=== PATIENT | female | born 1940 | race Caucasian/White ===

== ENCOUNTER 2017-12-04 18:00 | Emergency (ER) | payer MEDICARE ==
[~2017-12-04] VITALS: Ht 167.6 cm; Wt 86.2 kg
[~2017-12-04 18:00] MED LIST: ALBU90OI INH; AMLO5 PO; ASPI81CH PO; ASPI81EC PO; B/P MED; CEPH500 PO; CHOL10002; CHOL10002 PO; CLON.1 PO; CLOP75 PO; CVS GLUCOSAMIN1 EAC5 PO; Calcium Magnes1 EAC1 PO; Cyclobenzaprine5 MG PO; GABA300 PO; HYDACE10B PO; HYDR1TAB94 PO; LISI20 PO; LISI5 PO; LIVALO1 MG PO; MELO7.5 PO; METANEX PO; METO25 PO; METO25ER PO; MIRAPEX ER1.5 MG PO; NITR.6SL SL; OMEGA-3 PO; PRAM.125 PO; PRAM.5 PO; PRAV10 PO; PRED20 PO; ROSU5 PO; SPACE CHAMBER1 EACH MC; TERB250 PO; TRAM50 PO; UBID100 PO; VITAMIN B PO; VITNEPH PO; XARELTO10 MG PO; [UNRECOGNIZED DRUG - OTHER]; [UNRECOGNIZED DRUG - OTHER] PO
[2017-12-04 18:42] LABS: BASOPHILS ABSOLUTE AUTO 0.02 K/mm3 (0.00-0.23); BASOPHILS PERCENT AUTO 0 % (0-2); EOSINOPHILS ABSOLUTE AUTO 0.35 K/mm3 (0.00-0.68); EOSINOPHILS PERCENT AUTO 6 % (0-6); Hematocrit 36.8 % (33.0-51.0); Hemoglobin 11.9 g/dL (11.5-16.0); IMMATURE GRAN ABSOLUTE AUTO 0.01 K/mm3 (0.00-0.10); IMMATURE GRAN PERCENT AUTO 0 % (0-1); LYMPHOCYTES ABSOLUTE AUTO 1.35 K/mm3 (0.84-5.20); LYMPHOCYTES PERCENT AUTO 24 % (21-46); MONOCYTES ABSOLUTE AUTO 0.44 K/mm3 (0.16-1.47); MONOCYTES PERCENT AUTO 8 % (4-13); Mean Corpuscular HGB 30.1 pg (26.0-34.0); Mean Corpuscular HGB Conc 32.3 g/dL (31.5-36.5); Mean Corpuscular Volume 93 fL (80-100); NEUTROPHILS ABSOLUTE AUTO 3.48 K/mm3 (1.96-9.15); NEUTROPHILS PERCENT AUTO 62 % (41-73); Platelet Count 245 K/mm3 (150-400); RDW Coefficient Variation 13.7 % (11.7-14.2); RDW Standard Deviation 46.7 fL (35.1-46.3); Red Blood Cell Count 3.96 M/mm3 (3.80-5.20); White Blood Cell Count 5.65 K/mm3 (4.00-11.30)
[2017-12-04 19:02] LABS: Alanine Aminotransfer (ALT/SGP 27 U/L (12-78); Albumin, Blood 3.4 g/dL (3.4-5.0); Albumin/Globulin Ratio 0.8 (0.8-1.8); Alk Phos 74 U/L (50-136); Anion Gap 6 mmol/L (6-16); Aspartate Aminotrans (AST/SGOT 29 U/L (12-37); Bilirubin, Total 0.2 mg/dL (0.1-1.0); Blood Urea Nitrogen 26 mg/dL (8-24); Bun/Creatinine Ratio 29.5 (12.0-20.0); CO2, Blood 28 mmol/L (21-32); Calcium, Blood 8.7 mg/dL (8.5-10.1); Chloride, Blood 104 mmol/L (98-108); Creatinine, Blood 0.88 mg/dL (0.40-1.00); Globulin, Blood 4.4 g/dL (2.2-4.0); Glomerular Filtration Rate >60 (60-); Glucose, Blood 113 mg/dL (70-99); Potassium, Blood 4.5 mmol/L (3.5-5.5); Sodium, Blood 138 mmol/L (136-145); Total Protein, Blood 7.8 g/dL (6.4-8.2); Troponin I <0.015 ng/mL (0.000-0.040)
[2017-12-04] MEDS ORDERED: XARELTO10 MG (21:53)
[2017-12-04] MEDS ORDERED: MECL12.5 PO (23:36)
== END 2017-12-04 23:42 | disposition home or self-care (01) ==
LOC: ER 18:00
PROVIDERS: Emergency Medicine
DX: R42 Dizziness and giddiness (principal); I10 Essential (primary) hypertension; K21.9 Gastro-esophageal reflux disease without esophagitis; Z88.6 Allergy status to analgesic agent; Z88.1 Allergy status to other antibiotic agents; Z88.5 Allergy status to narcotic agent; Z79.899 Other long term (current) drug therapy
CPT/HCPCS: 36415; 71046; 80053; 83880; 84484; 85025; 93005; 93010; 96361; 96374; 99284-25; J2405; J7120

== ENCOUNTER 2018-09-29 16:59 | Emergency (ER) | payer MEDICARE ==
[~2018-09-29] VITALS: Ht 167.6 cm; Wt 90.7 kg
[~2018-09-29 16:59] MED LIST changes: +MECL12.5 PO; +NAPR550 PO; +XARELTO10 MG
[2018-09-29 19:37] LABS: BASOPHILS ABSOLUTE AUTO 0.01 K/mm3 (0.00-0.23); BASOPHILS PERCENT AUTO 0 % (0-2); EOSINOPHILS ABSOLUTE AUTO 0.16 K/mm3 (0.00-0.68); EOSINOPHILS PERCENT AUTO 3 % (0-6); Hematocrit 40.4 % (33.0-51.0); Hemoglobin 12.8 g/dL (11.5-16.0); IMMATURE GRAN ABSOLUTE AUTO 0.01 K/mm3 (0.00-0.10); IMMATURE GRAN PERCENT AUTO 0 % (0-1); LYMPHOCYTES ABSOLUTE AUTO 0.63 K/mm3 (0.84-5.20); LYMPHOCYTES PERCENT AUTO 11 % (21-46); MONOCYTES ABSOLUTE AUTO 0.39 K/mm3 (0.16-1.47); MONOCYTES PERCENT AUTO 7 % (4-13); Mean Corpuscular HGB 30.7 pg (26.0-34.0); Mean Corpuscular HGB Conc 31.7 g/dL (31.5-36.5); Mean Corpuscular Volume 97 fL (80-100); Mean Platelet Volume 8.8 fL (9.1-12.4); NEUTROPHILS ABSOLUTE AUTO 4.82 K/mm3 (1.96-9.15); NEUTROPHILS PERCENT AUTO 80 % (41-73); Platelet Count 197 K/mm3 (150-400); RDW Coefficient Variation 13.9 % (11.7-14.2); RDW Standard Deviation 49.5 fL (35.1-46.3); Red Blood Cell Count 4.17 M/mm3 (3.80-5.20); White Blood Cell Count 6.02 K/mm3 (4.00-11.30)
[2018-09-29] MEDS ORDERED: AZIT500 PO (20:00)
== END 2018-09-29 20:13 | disposition home or self-care (01) ==
LOC: ER 16:59
PROVIDERS: Emergency Medicine
DX: J40 Bronchitis, not specified as acute or chronic (principal); I10 Essential (primary) hypertension; K21.9 Gastro-esophageal reflux disease without esophagitis
CPT/HCPCS: 36415; 71046; 85025; 99284-25

== ENCOUNTER → 2018-11-21 | Outpatient (CLI) | payer MEDICARE ==
[~2018-11-21] MED LIST changes: +AZIT500 PO
[2018-11-21 10:51] LABS: Source, Urine Clean Catch
[2018-11-21 13:53] LABS: Bilirubin, Urine Neg (Neg); Blood, Urine 1+ (Neg); Glucose Qualitative, Urine Neg (Neg); Ketones, Urine Neg (Neg); Leukocyte Esterase, Urine Neg (Neg); Nitrite, Urine Neg (Neg); Protein, Urine Neg (Neg); Urobilinogen, Urine NORM (Normal); pH, Urine 6.5 (5.0-8.0)
[2018-11-21 14:47] LABS: Appearance, Urine Clear (Clear); Color, Urine Yellow (P-Yellow)
[2018-11-21 14:51] LABS: Bacteria Rare /hpf; Red Blood Cells, Urine 0-2 /hpf (0-2); Squamous Epithelial Cells Rare /hpf (Few); White Blood Cells, Urine 0-2 /hpf (0-5)
== END | disposition home or self-care (01) ==
LOC: LAB 10:45 → LAB SHORT 10:45
PROVIDERS: Internal Medicine
DX: R31.29 Other microscopic hematuria (principal)
CPT/HCPCS: 81001; 88108

== ENCOUNTER → 2021-12-25 | Outpatient (CLI) | payer MEDICARE ==
[~2021-12-25] MED LIST changes: +CYMBALTA30 M2 PO; +Mirapex1.5 MG PO; +NEURONTIN300 MG PO
== END | disposition home or self-care (01) ==
LOC: LAB SHORT 18:59
DX: N39.0 Urinary tract infection, site not specified (principal)
CPT/HCPCS: 87077; 87086; 87186

== ENCOUNTER 2021-12-27 14:18 | Inpatient (IN) | payer MEDICARE ==
[~2021-12-27] VITALS: Ht 165.1 cm; Wt 89.8 kg
[~2021-12-27 14:18] MED LIST changes: +CALCIUM MAGNES1 EACH PO; -CHOL10002; -CYMBALTA30 M2 PO; -Calcium Magnes1 EAC1 PO; -Mirapex1.5 MG PO; -NEURONTIN300 MG PO; +VITAMIN D31000 UNI1 PO
[2021-12-27 20:28] LABS: Influenza A, PCR NEGATIVE (NEGATIVE); Influenza B, PCR NEGATIVE (NEGATIVE); Resp Syncytial Virus, PCR NEGATIVE (NEGATIVE); SARS-Cov-2 (COVID-19) PCR, MMC NEGATIVE (NEGATIVE)
[2021-12-27 20:29] LABS: Calcium, Blood 9.4 mg/dL (8.5-10.1); Creatinine, Blood 0.9 mg/dL (0.40-1.00)
[2021-12-27 21:19] LABS: Bun/Creatinine Ratio 21.3 (12.0-20.0); Calcium, Blood 7.9 mg/dL (8.5-10.1); Creatinine, Blood 0.84 mg/dL (0.40-1.00); Potassium, Blood 3.6 mmol/L (3.5-5.5)
--- NOTE | 2021-12-27 23:50 | NUR ---
ADMIT NOTE 81 YR OLD FEMALE ADMITTED TO FLOOR FROM THE ED WITH DX OF HYPONATREMIA. ED RN VOICED PT STATED THAT SHE WAS SENT HERE WITH ALLEGED PNEUMONIA AND FOR ANTIBIOTIC THERAPY. BUT AFTER ASSESSMENTS IT WAS CHANGED TO HYPONATREMIA. ALERT BUT FORGETFUL. ED RN REPORTED RECENT FALLS. PLACED ON BED ALARM AND RAILS UP X 3. EDUCATED RE CALL LIGHT USE AND AGREES TO USE IT IF NEEDS TO GET OUT OF BED. CALL LIGHT IN REACH
[2021-12-28 03:05] LABS: BASOPHILS ABSOLUTE AUTO 0.03 K/mm3 (0.00-0.23); BASOPHILS PERCENT AUTO 0 % (0-2); EOSINOPHILS ABSOLUTE AUTO 0.07 K/mm3 (0.00-0.68); EOSINOPHILS PERCENT AUTO 1 % (0-6); Hemoglobin 10.6 g/dL (11.5-16.0); IMMATURE GRAN ABSOLUTE AUTO 0.04 K/mm3 (0.00-0.10); IMMATURE GRAN PERCENT AUTO 1 % (0-1); LYMPHOCYTES ABSOLUTE AUTO 0.78 K/mm3 (0.84-5.20); LYMPHOCYTES PERCENT AUTO 9 % (21-46); MONOCYTES ABSOLUTE AUTO 0.47 K/mm3 (0.16-1.47); MONOCYTES PERCENT AUTO 5 % (4-13); Mean Corpuscular HGB 31.2 pg (26.0-34.0); Mean Corpuscular HGB Conc 34.2 g/dL (31.5-36.5); Mean Corpuscular Volume 91 fL (80-100); Mean Platelet Volume 8.8 fL (9.1-12.4); NEUTROPHILS ABSOLUTE AUTO 7.24 K/mm3 (1.96-9.15); NEUTROPHILS PERCENT AUTO 84 % (41-73); Platelet Count 211 K/mm3 (150-400); RDW Coefficient Variation 13.8 % (11.7-14.2); RDW Standard Deviation 46.7 fL (35.1-46.3); White Blood Cell Count 8.63 K/mm3 (4.00-11.30)
[2021-12-28 03:22] LABS: Albumin, Blood 2.3 g/dL (3.4-5.0); Albumin/Globulin Ratio 0.5 (0.8-1.8); Bilirubin, Total 0.3 mg/dL (0.1-1.0); Calcium, Blood 8.4 mg/dL (8.5-10.1); Creatinine, Blood 0.81 mg/dL (0.40-1.00); Globulin, Blood 4.4 g/dL (2.2-4.0); Potassium, Blood 3.7 mmol/L (3.5-5.5); Total Protein, Blood 6.7 g/dL (6.4-8.2)
--- NOTE | 2021-12-28 03:27 | NUR ---
EPIC INTERFACE ANALYST SUMMARY ADMITTED EARLIER IN THE SHIFT WITH HYPONATREMIA, AND FALLS AT HOME. ALSO, PER ED RN RESPIRATORY ISSUES - PNEUMONIA. IV ANTIBIOTICS ADMINISTERED SEE JUN. ORIENTED TO USE OF CALL LIGHT. INSTRUCTED TO USE CALL LIGHT IF NEEDS TO GET OUT OF BED. HAS BEEN RESTING QUIETLY WITH FEW INTERRUPTIONS SINCE. DMITRY LIGHT IN REACH. VSS
[2021-12-28 05:28] LABS: Source, Urine Clean Catch
[2021-12-28 05:33] LABS: Bilirubin, Urine Neg (Neg); Blood, Urine 4+ (Neg); Glucose Qualitative, Urine Neg (Neg); Ketones, Urine 1+ (Neg); Leukocyte Esterase, Urine 1+ (Neg); Nitrite, Urine Neg (Neg); Protein, Urine 2+ (Neg); Specific Gravity, Urine 1.015 (1.003-1.022); Urobilinogen, Urine NORM (Normal)
[2021-12-28 06:15] LABS: Appearance, Urine Clear (Clear); Color, Urine Yellow (P-Yellow)
[2021-12-28 06:18] LABS: Bacteria Few /hpf; Squamous Epithelial Cells Few /hpf (Few); Transitional Epithelial Cells Rare /hpf (0-Rare)
[2021-12-28 09:43] LABS: Bun/Creatinine Ratio 19.6 (12.0-20.0); Calcium, Blood 8.4 mg/dL (8.5-10.1); Creatinine, Blood 0.92 mg/dL (0.40-1.00); Potassium, Blood 3.7 mmol/L (3.5-5.5)
[2021-12-28] MEDS ORDERED: NEURONTIN300 MG PO ×2 (11:50→11:51)
[2021-12-28] MEDS ORDERED: CYMBALTA30 M2 PO (11:50)
[2021-12-28] MEDS ORDERED: Mirapex1.5 MG PO (11:51)
[2021-12-28 15:06] LABS: Bun/Creatinine Ratio 20.6 (12.0-20.0); Calcium, Blood 9.2 mg/dL (8.5-10.1); Creatinine, Blood 0.88 mg/dL (0.40-1.00); Potassium, Blood 4.1 mmol/L (3.5-5.5)
--- NOTE | 2021-12-28 18:11 | NUR ---
SHIFT SUMMARY A&O X3-4 AND PLEASANT. PT COMPLAINED OF HEADACHE AND CHEST PAIN WHEN SHE COUGHED. MEDICATED X1 PER EMAR. VSS. NO C/O OF NUMBNESS OR TINGLING. SMALL SCABS ON BILATEREAL ELBOWS THAT BOTHERED PT WHEN MOVING. GUAZE AND CAST NETTING PLACED. PT UP IN CHAIR FOR DINNER. CALL LIGHT IN REACH.
--- NOTE | 2021-12-28 21:36 | NUR ---
STATED SHE FELT "BETTER" THAN WHEN FIRST ADMITTED BUT STILL WEAK. DISCUSSED ANTIBIOTICS WITH NURSE. CALL LIGHT IN REACH
--- NOTE | 2021-12-29 03:40 | NUR ---
HOCKEY PLAYER SUMMARY O2 AT 2.5L/MIN PER NC. LUNG SOUNDS REMAIN DIMINISHED BUT PT VOICED FEELING BETTER THAN 24 HR AGO. HAS BEEN RESTING QUIETLY WITH FEW INTERRUPTIONS, ONE TIME SEEMED TO HAVE SARMAD DREAM - CALLING OUT AND MUMBLING. WHEN NURSE CAME TO CHECK HER, SHE SEEMED STARTLED SHE WOKE UP AND SYMPTOMS WENT AWAY. CONTINUES TO RECEIVE ANTIBIOTICS. CALL LIGHT IN REACH. UP WITH ASSIST TO BATHROOM NEEDED. WILL CONTINUE TO MONITOR
[2021-12-29 05:00] LABS: BASOPHILS ABSOLUTE AUTO 0.02 K/mm3 (0.00-0.23); BASOPHILS PERCENT AUTO 0 % (0-2); EOSINOPHILS ABSOLUTE AUTO 0.35 K/mm3 (0.00-0.68); EOSINOPHILS PERCENT AUTO 4 % (0-6); Hemoglobin 10.7 g/dL (11.5-16.0); IMMATURE GRAN ABSOLUTE AUTO 0.05 K/mm3 (0.00-0.10); IMMATURE GRAN PERCENT AUTO 1 % (0-1); LYMPHOCYTES ABSOLUTE AUTO 0.57 K/mm3 (0.84-5.20); LYMPHOCYTES PERCENT AUTO 7 % (21-46); MONOCYTES ABSOLUTE AUTO 0.57 K/mm3 (0.16-1.47); MONOCYTES PERCENT AUTO 7 % (4-13); Mean Corpuscular HGB 30.8 pg (26.0-34.0); Mean Corpuscular HGB Conc 33.4 g/dL (31.5-36.5); Mean Corpuscular Volume 92 fL (80-100); Mean Platelet Volume 8.7 fL (9.1-12.4); NEUTROPHILS ABSOLUTE AUTO 6.52 K/mm3 (1.96-9.15); NEUTROPHILS PERCENT AUTO 81 % (41-73); Platelet Count 220 K/mm3 (150-400); RDW Coefficient Variation 13.7 % (11.7-14.2); RDW Standard Deviation 46.8 fL (35.1-46.3); Red Blood Cell Count 3.47 M/mm3 (3.80-5.20); White Blood Cell Count 8.08 K/mm3 (4.00-11.30)
[2021-12-29 05:35] LABS: Albumin, Blood 2.2 g/dL (3.4-5.0); Anion Gap 6 mmol/L (6-16); Blood Urea Nitrogen 16 mg/dL (8-24); Bun/Creatinine Ratio 23.4 (12.0-20.0); CO2, Blood 28 mmol/L (21-32); Calcium, Blood 8.9 mg/dL (8.5-10.1); Chloride, Blood 95 mmol/L (98-108); Creatinine, Blood 0.68 mg/dL (0.40-1.00); Glomerular Filtration Rate 87 (60-); Glucose, Blood 91 mg/dL (70-99); Magnesium, Blood 2.2 mg/dL (1.6-2.4); Phosphorus, Blood 3.5 mg/dL (2.5-4.9); Potassium, Blood 4.1 mmol/L (3.5-5.5); Sodium, Blood 129 mmol/L (136-145)
--- NOTE | 2021-12-30 04:00 | NUR ---
FIXED INTEREST DEALER SUMMARY RECEIVED ANALGESIC AT HS FOR SHEPHERD. FEW C/O VOICED OTHERWISE. IV ANTIBIOTICS ADMINISTERED- SEE MAR FOR DETAILS. HAS BEEN RESTING QUIETLY WITH FEW INTERRUPTIONS. UP TO BATHROOM WITH ASSIST A FEW TIMES. VOICED FEELING BETTER BUT STILL FATIGUED. CALL LIGHT IN REACH. VSS
[2021-12-30 05:56] LABS: BASOPHILS ABSOLUTE AUTO 0.02 K/mm3 (0.00-0.23); BASOPHILS PERCENT AUTO 0 % (0-2); EOSINOPHILS ABSOLUTE AUTO 0.35 K/mm3 (0.00-0.68); EOSINOPHILS PERCENT AUTO 6 % (0-6); Hematocrit 32.5 % (33.0-51.0); Hemoglobin 10.8 g/dL (11.5-16.0); IMMATURE GRAN ABSOLUTE AUTO 0.07 K/mm3 (0.00-0.10); IMMATURE GRAN PERCENT AUTO 1 % (0-1); LYMPHOCYTES ABSOLUTE AUTO 0.83 K/mm3 (0.84-5.20); LYMPHOCYTES PERCENT AUTO 13 % (21-46); MONOCYTES ABSOLUTE AUTO 0.49 K/mm3 (0.16-1.47); MONOCYTES PERCENT AUTO 8 % (4-13); Mean Corpuscular HGB 30.9 pg (26.0-34.0); Mean Corpuscular HGB Conc 33.2 g/dL (31.5-36.5); Mean Corpuscular Volume 93 fL (80-100); Mean Platelet Volume 8.7 fL (9.1-12.4); NEUTROPHILS ABSOLUTE AUTO 4.52 K/mm3 (1.96-9.15); NEUTROPHILS PERCENT AUTO 72 % (41-73); Platelet Count 283 K/mm3 (150-400); RDW Coefficient Variation 13.6 % (11.7-14.2); RDW Standard Deviation 46.5 fL (35.1-46.3); White Blood Cell Count 6.28 K/mm3 (4.00-11.30)
[2021-12-30 06:21] LABS: Albumin, Blood 2.4 g/dL (3.4-5.0); Anion Gap 8 mmol/L (6-16); Blood Urea Nitrogen 17 mg/dL (8-24); CO2, Blood 29 mmol/L (21-32); Chloride, Blood 95 mmol/L (98-108); Creatinine, Blood 0.77 mg/dL (0.40-1.00); Glomerular Filtration Rate 77 (60-); Glucose, Blood 96 mg/dL (70-99); Magnesium, Blood 2.2 mg/dL (1.6-2.4); Potassium, Blood 4.1 mmol/L (3.5-5.5); Sodium, Blood 132 mmol/L (136-145)
--- NOTE | 2021-12-30 16:39 | NUR ---
NO ACUTE CHANGES AT THIS TIME. AO AND DOING WELL WITH GAITBELT AND WALKER TO RESTROOM. NO DISTRESS AT THIS TIME CALL LIGHT WITHIN REACH WILL CONTINUE TO MONITOR.
--- NOTE | 2021-12-30 23:11 | NUR ---
PT UP IN HALLWAY, VOICING CONCERN RE "SEEING THINGS", WENT ON TO SPECIFY, "LIGHT FOLLOWING MY ARM....HEARING SOMEONE BEHIND ME...SEEING LINEN IN FRONT OF ME..". BP ELEVATED. WILL RECHECK LATER - SEE DOC FLOW SHEETS. RECEIVED NEW MEDS TONIGHT: LYRICA AND REQUIP. NOTIFIED. ORDERS TO HOLD REQUIP UNIL FURTHER NOTICE. CALL LIGHT IN REACH.
--- NOTE | 2021-12-30 23:42 | NUR ---
requip discontinued. Pt sitting up in chair at bedside. Will continue to monitor. Call light in reach
--- NOTE | 2021-12-31 03:13 | NUR ---
AWAKE. SITTING ON BAD. VOICED "FEELING BETTER". CALL LIGHT IN REACH
--- NOTE | 2021-12-31 04:44 | NUR ---
A&Ox4. DBP DROPPED A LITTLE LOW THIS EVENING. STARTED REQUIP AND LYRICA THIS EVENING. C/O "SEEING CHASERS" AND SOME HALLUCINATIONS. PER DR PEDRAZA, DC REQUIP. AMBULATES SBA W/ WALKER. C/O RT LEG "JUMPING" R/T RLS AND NEUROPATHY. SLEPT T/O MOST OF NIGHT. WILL REPORT TO ONCOMING RN.
[2021-12-31 05:31] LABS: BASOPHILS ABSOLUTE AUTO 0.03 K/mm3 (0.00-0.23); BASOPHILS PERCENT AUTO 1 % (0-2); EOSINOPHILS ABSOLUTE AUTO 0.28 K/mm3 (0.00-0.68); EOSINOPHILS PERCENT AUTO 5 % (0-6); Hemoglobin 10.9 g/dL (11.5-16.0); IMMATURE GRAN ABSOLUTE AUTO 0.09 K/mm3 (0.00-0.10); IMMATURE GRAN PERCENT AUTO 2 % (0-1); LYMPHOCYTES ABSOLUTE AUTO 1.05 K/mm3 (0.84-5.20); LYMPHOCYTES PERCENT AUTO 19 % (21-46); MONOCYTES ABSOLUTE AUTO 0.54 K/mm3 (0.16-1.47); MONOCYTES PERCENT AUTO 10 % (4-13); Mean Corpuscular HGB 30.7 pg (26.0-34.0); Mean Corpuscular Volume 93 fL (80-100); Mean Platelet Volume 8.5 fL (9.1-12.4); NEUTROPHILS PERCENT AUTO 64 % (41-73); Platelet Count 328 K/mm3 (150-400); RDW Coefficient Variation 13.5 % (11.7-14.2); RDW Standard Deviation 46.5 fL (35.1-46.3); Red Blood Cell Count 3.55 M/mm3 (3.80-5.20); White Blood Cell Count 5.59 K/mm3 (4.00-11.30)
[2021-12-31 06:04] LABS: Albumin, Blood 2.7 g/dL (3.4-5.0); Anion Gap 10 mmol/L (6-16); Blood Urea Nitrogen 17 mg/dL (8-24); Bun/Creatinine Ratio 21.9 (12.0-20.0); CO2, Blood 27 mmol/L (21-32); Calcium, Blood 9.6 mg/dL (8.5-10.1); Chloride, Blood 97 mmol/L (98-108); Creatinine, Blood 0.78 mg/dL (0.40-1.00); Glomerular Filtration Rate 76 (60-); Glucose, Blood 97 mg/dL (70-99); Phosphorus, Blood 4.4 mg/dL (2.5-4.9); Sodium, Blood 134 mmol/L (136-145)
--- NOTE | 2021-12-31 16:38 | NUR ---
SHIFT SUMMARY: PATIENT A&OX4. PLEASANT AND COOPERATIVE WITH CARE. LUNGS HEARD CRACKLES ON THE BASES. CONTINENT OF BOWELS/BLADDER. UP WITH SBA & FWW TO BATHROOM. PT/OT WAS WORKING WITH PATIENT THIS AM. VITALS SIGNS REVIEWED. PATIENT CONTINUE TO REPORTS HAVING RESTLESS LEG SYNDROME. RECIEVED LIDOCAINE CREAM PER EMAR. PATIENT REPORTS OF HAVING MINIMAL EFFECT. NO ACUTE CHANGES THIS SHIFT. BED IN LOWEST POSITION, LOCKED AND CALL LIGHT WITHIN REACH.
--- NOTE | 2021-12-31 17:49 | NUR ---
THIS DRY TRANSFER WORKER HAS REVIEWED ALL ASSESSMENTS AND NOTES BY JOHANNY HERRERA AND AGREES WITH THEM.
--- NOTE | 2021-12-31 18:40 | NUR ---
PT HAS IS STATING SHE HAS ACID REFLUX PT SAID THIS CAUSED HER EMESIS AFTER DINNER. DR SWANN WAS NOTIFIED AND ADDED MEDICATION TO EMAR.
[2022-01-01 05:19] LABS: BASOPHILS ABSOLUTE AUTO 0.04 K/mm3 (0.00-0.23); BASOPHILS PERCENT AUTO 1 % (0-2); EOSINOPHILS ABSOLUTE AUTO 0.26 K/mm3 (0.00-0.68); EOSINOPHILS PERCENT AUTO 3 % (0-6); Hemoglobin 11.3 g/dL (11.5-16.0); IMMATURE GRAN ABSOLUTE AUTO 0.12 K/mm3 (0.00-0.10); IMMATURE GRAN PERCENT AUTO 1 % (0-1); LYMPHOCYTES ABSOLUTE AUTO 1.03 K/mm3 (0.84-5.20); LYMPHOCYTES PERCENT AUTO 12 % (21-46); MONOCYTES ABSOLUTE AUTO 0.62 K/mm3 (0.16-1.47); MONOCYTES PERCENT AUTO 7 % (4-13); Mean Corpuscular HGB 31.2 pg (26.0-34.0); Mean Corpuscular HGB Conc 33.2 g/dL (31.5-36.5); Mean Corpuscular Volume 94 fL (80-100); Mean Platelet Volume 8.2 fL (9.1-12.4); NEUTROPHILS ABSOLUTE AUTO 6.63 K/mm3 (1.96-9.15); NEUTROPHILS PERCENT AUTO 76 % (41-73); Platelet Count 362 K/mm3 (150-400); RDW Coefficient Variation 13.6 % (11.7-14.2); RDW Standard Deviation 47.3 fL (35.1-46.3); Red Blood Cell Count 3.62 M/mm3 (3.80-5.20)
[2022-01-01 05:43] LABS: Albumin, Blood 2.6 g/dL (3.4-5.0); Anion Gap 4 mmol/L (6-16); Blood Urea Nitrogen 17 mg/dL (8-24); Bun/Creatinine Ratio 19.2 (12.0-20.0); CO2, Blood 32 mmol/L (21-32); Calcium, Blood 9.7 mg/dL (8.5-10.1); Chloride, Blood 99 mmol/L (98-108); Creatinine, Blood 0.89 mg/dL (0.40-1.00); Glomerular Filtration Rate 65 (60-); Glucose, Blood 98 mg/dL (70-99); Magnesium, Blood 2.2 mg/dL (1.6-2.4); Potassium, Blood 4.6 mmol/L (3.5-5.5); Sodium, Blood 135 mmol/L (136-145)
--- NOTE | 2022-01-01 06:14 | NUR ---
SHRIMP PACKER SUMMARY PT A/OX4; NO ACUTE CHANGES. PT RESTED COMFORTABLY T/O THE NIGHT. PT STATES SHE LIVES ALONE. HER SON LIVES ON PROPERTY BUT RECENTLY INJURED IN MVA. PT IS INTERESTED IN GETTING A LIFE ALERT SERVICE WHEN SHE RETURNS HOME. LEFT VM W/CASE MANAGEMENT ABOUT INTEREST IN LIFE ALERT. WILL PASS CONCERN ON TO DAY SHIFT NURSE. CALL LIGHT IN REACH.
[2022-01-01] MEDS ORDERED: Norco 5-325 Ta1 EACH PO (12:51)
[2022-01-01] MEDS ORDERED: LYRICA100 M1 PO (12:52)
[2022-01-01] MEDS ORDERED: XARELTO20 MG PO (12:54)
[2022-01-01] MEDS ORDERED: AMOCLA875 PO (13:28)
[2022-01-01] MEDS ORDERED: OMEP20ER PO (13:31)
[2022-01-01] MEDS ORDERED: LIDO5TO TOP (13:31)
--- NOTE | 2022-01-01 16:06 | NUR ---
PATIENT A&OX4. PLEASANT AND COOPERATIVE WITH CARE. UP WITH SBA AMBULATES TO BATHROOM AND BACK TO BED. DENIES SOB. ON RA MAINTAINED SPO2 ABOVE 90%. REPORT OF RESTLESS LEG THIS AM. PRN MEDS GIVEN PER EMAR. VITALS SIGNS REVIEWED. PATIENT REPORT OF GREAT RELIEF. PATIENT D/C HOME. DISCHARGED INSTRUCTION PACKET GIVEN TO PATIENT. EDUCATE PATIENT REGARDING ADMITTING DX, S/S, TREATMENT AND NEW PRESCRIBED MEDICATIONS. PATIENT STATED UNDERSTANDING AND NO FURTHER QUESTIONS. RX WAS SENT TO PATIENT PREFFERED PHARMACY. PATIENT PERSONAL BELONGINGS WERE SENT HOME WITH PATIENT. PATIENT LEFT THE ROOM AT 1552 AND WAS TRANSPORTED VIA WHEELCHAIR BY DIRECTOR OF INDUSTRIAL RELATIONS STAFF TO DAUGHTER'S PRIVATE VEHICLE.
== END 2022-01-01 16:20 | disposition home health service (06) | DRG 640 ==
LOC: ER 14:18 → MEDS 19:42
PROVIDERS: Emergency Medicine; Family Medicine; ADMIT Internal Medicine
DX: E87.1 Hypo-osmolality and hyponatremia (principal); J18.9 Pneumonia, unspecified organism; N39.0 Urinary tract infection, site not specified; N17.9 Acute kidney failure, unspecified; R44.3 Hallucinations, unspecified; I48.91 Unspecified atrial fibrillation; I10 Essential (primary) hypertension; G25.81 Restless legs syndrome; G62.9 Polyneuropathy, unspecified; Z20.822 Contact with and (suspected) exposure to COVID-19; K21.9 Gastro-esophageal reflux disease without esophagitis; B96.20 Unspecified Escherichia coli [E. coli] as the cause of diseases classified elsewhere; B95.4 Other streptococcus as the cause of diseases classified elsewhere; G89.29 Other chronic pain; Z96.653 Presence of artificial knee joint, bilateral; Z90.710 Acquired absence of both cervix and uterus; Z90.49 Acquired absence of other specified parts of digestive tract; Z98.890 Other specified postprocedural states; Z79.899 Other long term (current) drug therapy; Z79.811 Long term (current) use of aromatase inhibitors; Z79.891 Long term (current) use of opiate analgesic; Z88.8 Allergy status to other drugs, medicaments and biological substances; Z88.5 Allergy status to narcotic agent; Z79.01 Long term (current) use of anticoagulants; Z79.2 Long term (current) use of antibiotics
CPT/HCPCS: 0241U; 36415; 74177; 80048; 80053; 80069; 81001; 83605; 83690; 83735; 83935; 84145; 84300; 84443; 85025; 87086; 94762; 96365; 96375; 97161; 97166; 97530; 97535; 99285-25; A9270; J0456; J0696; J2405; J7030; J7050; Q9967

== ENCOUNTER → 2021-12-27 | Outpatient (CLI) | payer MEDICARE ==
[2021-12-27 13:42] LABS: BASOPHILS ABSOLUTE AUTO 0.03 K/mm3 (0.00-0.23); BASOPHILS PERCENT AUTO 0 % (0-2); EOSINOPHILS ABSOLUTE AUTO 0.02 K/mm3 (0.00-0.68); EOSINOPHILS PERCENT AUTO 0 % (0-6); Hematocrit 36.5 % (33.0-51.0); Hemoglobin 12.6 g/dL (11.5-16.0); IMMATURE GRAN ABSOLUTE AUTO 0.04 K/mm3 (0.00-0.10); IMMATURE GRAN PERCENT AUTO 0 % (0-1); LYMPHOCYTES ABSOLUTE AUTO 0.45 K/mm3 (0.84-5.20); LYMPHOCYTES PERCENT AUTO 5 % (21-46); MONOCYTES ABSOLUTE AUTO 0.46 K/mm3 (0.16-1.47); MONOCYTES PERCENT AUTO 5 % (4-13); Mean Corpuscular HGB 31.3 pg (26.0-34.0); Mean Corpuscular HGB Conc 34.5 g/dL (31.5-36.5); Mean Corpuscular Volume 91 fL (80-100); Mean Platelet Volume 8.6 fL (9.1-12.4); NEUTROPHILS ABSOLUTE AUTO 8.75 K/mm3 (1.96-9.15); NEUTROPHILS PERCENT AUTO 90 % (41-73); Platelet Count 228 K/mm3 (150-400); RDW Coefficient Variation 13.7 % (11.7-14.2); RDW Standard Deviation 46.2 fL (35.1-46.3); Red Blood Cell Count 4.03 M/mm3 (3.80-5.20); White Blood Cell Count 9.75 K/mm3 (4.00-11.30)
[2021-12-27 13:48] LABS: Albumin, Blood 2.7 g/dL (3.4-5.0); Albumin/Globulin Ratio 0.5 (0.8-1.8); Bilirubin, Total 0.5 mg/dL (0.1-1.0); Bun/Creatinine Ratio 15.5 (12.0-20.0); Calcium, Blood 8.7 mg/dL (8.5-10.1); Creatinine, Blood 1.1 mg/dL (0.40-1.00); Globulin, Blood 5.4 g/dL (2.2-4.0); Total Protein, Blood 8.1 g/dL (6.4-8.2)
== END | disposition home or self-care (01) ==
LOC: LAB 13:34 → LAB SHORT 13:34
PROVIDERS: General Practice
DX: N39.0 Urinary tract infection, site not specified (principal)
CPT/HCPCS: 80053; 85025

== ENCOUNTER 2022-07-28 05:41 | Day surgery (SDC) | payer MEDICARE ==
[2022-07-28] VITALS (15 sets, daily range): BP systolic 106–169; BP diastolic 52–88
[~2022-07-28] VITALS: Ht 162.6 cm; Wt 92.3 kg
[~2022-07-28 05:41] MED LIST changes: +AMOCLA875 PO; +CYMBALTA30 M2 PO; +LIDO5TO TOP; +LYRICA100 M1 PO; +Mirapex1.5 MG PO; +NEURONTIN300 MG PO; +Norco 5-325 Ta1 EACH PO; +OMEP20ER PO; +XARELTO20 MG PO
--- NOTE | 2022-07-28 06:48 | NUR ---
Wheelchaired in Day Surgery History, Chart, Medications and Allergies reviewed before start of procedure. Pre-Op teaching done. Pt verbalizes understanding.
--- NOTE | 2022-07-28 13:23 | NUR ---
"Spiritual Care | Pt. request Pt. is awake in bed and welcomes my visit. Pt. displays evidence of some somnolence. Pt. is pleasant and verbalizes no particular concerns. Facilitate a brief life review. Pt. verbalized gratitude for the spiritual care visit. Will remain available to Pt."
--- NOTE | 2022-07-28 19:28 | NUR ---
SHIFT SUMMARY POD 0 R GINA. CANDIDOEL, CHETAN, PAS, POLAR PACK IN PLACE TO RIGHT LE. SOMEWHAT DIZZY AND MODERATE ACID REFLUX. OBTAINED ORDER FOR TUMS AND TRAMADOL. NAUSEAUS AFTER OXYCODONE WAS ALSO PERSISTENT THROUGH AFTERNOON. TOLERATING SMALL PO INTAKE OF MEALS AND ORAL LIQUIDS. GOOD URINE OUTPUT. SALINE LOCKED. WORKED WITH PHYSICAL THERAPY. AMBULATED IN ROOM AND TO BATHROOM. UP IN RECLINER FOR EVENING. REPORT GIVEN TO RESTAURANT HOURLY MANAGER RN.
[2022-07-29 00:14] VITALS: BP 138/63
[2022-07-29 03:52] VITALS: BP 141/63
[2022-07-29 05:32] LABS: BASOPHILS ABSOLUTE AUTO 0.01 K/mm3 (0.00-0.23); BASOPHILS PERCENT AUTO 0 % (0-2); EOSINOPHILS PERCENT AUTO 0 % (0-6); Hematocrit 29.5 % (33.0-51.0); Hemoglobin 9.7 g/dL (11.5-16.0); IMMATURE GRAN ABSOLUTE AUTO 0.03 K/mm3 (0.00-0.10); IMMATURE GRAN PERCENT AUTO 0 % (0-1); LYMPHOCYTES ABSOLUTE AUTO 0.74 K/mm3 (0.84-5.20); LYMPHOCYTES PERCENT AUTO 7 % (21-46); MONOCYTES ABSOLUTE AUTO 0.73 K/mm3 (0.16-1.47); MONOCYTES PERCENT AUTO 7 % (4-13); Mean Corpuscular HGB 30.8 pg (26.0-34.0); Mean Corpuscular HGB Conc 32.9 g/dL (31.5-36.5); Mean Corpuscular Volume 94 fL (80-100); Mean Platelet Volume 8.8 fL (9.1-12.4); NEUTROPHILS ABSOLUTE AUTO 9.76 K/mm3 (1.96-9.15); NEUTROPHILS PERCENT AUTO 87 % (41-73); Platelet Count 208 K/mm3 (150-400); RDW Coefficient Variation 12.9 % (11.7-14.2); RDW Standard Deviation 44.5 fL (35.1-46.3); Red Blood Cell Count 3.15 M/mm3 (3.80-5.20); White Blood Cell Count 11.27 K/mm3 (4.00-11.30)
[2022-07-29 05:56] LABS: Bun/Creatinine Ratio 27.6 (12.0-20.0); Calcium, Blood 8.9 mg/dL (8.5-10.1); Creatinine, Blood 1.05 mg/dL (0.40-1.00); Potassium, Blood 4.6 mmol/L (3.5-5.5)
--- NOTE | 2022-07-29 06:20 | NUR ---
POD 1 S/P R GINA. PT VSS T/O NIGHT. DRESSING CDI, SITE SOFT TO PALP. PT REP PAIN MINIMAL, MGD W/TYLENOL/TORADOL W/REP RELIEF. PT C/O NAUSEA EARLY IN NIGHT, REP RELIEF W/ZOFRAN. PT COOPER PO, IS VOIDING W/O DIFFICULTY. PT AMB W/FWW+SBA, COOPER WELL. PLAN TO MOBILIZE W/PT AND D/C HOME.
[2022-07-29 07:56] VITALS: BP 118/51
[2022-07-29] MEDS ORDERED: ONDA4 PO (09:19)
[2022-07-29] MEDS ORDERED: TRAM50 PO (09:20)
--- NOTE | 2022-07-29 10:15 | NUR ---
DISCHARGE PATIENT EATING, DRINKING, & VOIDING WELL. CLEARED THERAPY WELL. AMBULATING WELL W/ FWW & GB, SBA. PAIN WELL MANAGED PER EMAR. AQUACEL DRESSING TO R HIP C/D/I. DISCUSSED DISCHARGE INSTRUCTIONS & SENT WITH PATIENT. SENT TRAMADOL & ZOFRAN SCRIPT WITH PATIENT. SENT POLAR PACK W/ PATIENT. ESCORTED OUT VIA W/C.
== END 2022-07-29 10:15 | disposition home or self-care (01) ==
LOC: ORSCMMR 05:41 → ORD 07:30 → ORSCMMR 07:30 → SURS 10:18 → ORSCMMR 07-29 10:15
PROVIDERS: Orthopaedic Surgery
PROC: 0SR90JZ Replacement of Right Hip Joint with Synthetic Substitute, Open Approach (ICD-10-PCS; principal; 2022-07-28 07:30)
DX: M16.11 Unilateral primary osteoarthritis, right hip (principal); Z96.642 Presence of left artificial hip joint; I10 Essential (primary) hypertension; I48.91 Unspecified atrial fibrillation; Z79.01 Long term (current) use of anticoagulants; E78.5 Hyperlipidemia, unspecified; G47.33 Obstructive sleep apnea (adult) (pediatric); Z86.73 Personal history of transient ischemic attack (TIA), and cerebral infarction without residual deficits; E66.9 Obesity, unspecified; Z68.34 Body mass index [BMI] 34.0-34.9, adult
CPT/HCPCS: 36415; 72170; 80048; 85025; 97110; 97116; 97162; 97530; A9270; C1713; C1776; J0171; J0690; J0735; J1100; J1885; J2405; J2704; J2765; J2795; J3010; J7120

== ENCOUNTER → 2022-09-09 | Outpatient (CLI) | payer MEDICARE ==
[~2022-09-09] MED LIST changes: +ONDA4 PO
[2022-09-09 14:57] LABS: Stool Occult Bld Immuno 1 Negative (NEGATIVE)
== END ==
LOC: LAB SHORT 07:00 → LAB 07:00
PROVIDERS: Physician Assistant
DX: K92.1 Melena (principal)
CPT/HCPCS: 82274

== ENCOUNTER 2022-12-02 08:15 | Emergency (ER) | payer MEDICARE ==
[~2022-12-02] VITALS: Ht 165.1 cm; Wt 90.7 kg
[2022-12-02 08:54] LABS: BASOPHILS ABSOLUTE AUTO 0.02 K/mm3 (0.00-0.23); BASOPHILS PERCENT AUTO 1 % (0-2); EOSINOPHILS ABSOLUTE AUTO 0.24 K/mm3 (0.00-0.68); EOSINOPHILS PERCENT AUTO 6 % (0-6); Hematocrit 34.9 % (33.0-51.0); Hemoglobin 11.5 g/dL (11.5-16.0); IMMATURE GRAN ABSOLUTE AUTO 0.01 K/mm3 (0.00-0.10); IMMATURE GRAN PERCENT AUTO 0 % (0-1); LYMPHOCYTES ABSOLUTE AUTO 0.97 K/mm3 (0.84-5.20); LYMPHOCYTES PERCENT AUTO 25 % (21-46); MONOCYTES ABSOLUTE AUTO 0.39 K/mm3 (0.16-1.47); MONOCYTES PERCENT AUTO 10 % (4-13); Mean Corpuscular HGB 29.9 pg (26.0-34.0); Mean Corpuscular Volume 91 fL (80-100); Mean Platelet Volume 9.1 fL (9.1-12.4); NEUTROPHILS ABSOLUTE AUTO 2.23 K/mm3 (1.96-9.15); NEUTROPHILS PERCENT AUTO 58 % (41-73); Platelet Count 212 K/mm3 (150-400); RDW Coefficient Variation 15.1 % (11.7-14.2); RDW Standard Deviation 50.1 fL (35.1-46.3); Red Blood Cell Count 3.85 M/mm3 (3.80-5.20); White Blood Cell Count 3.86 K/mm3 (4.00-11.30)
[2022-12-02 09:26] LABS: Albumin, Blood 3.1 g/dL (3.4-5.0); Albumin/Globulin Ratio 0.8 (0.8-1.8); Bilirubin, Total 0.3 mg/dL (0.1-1.0); Calcium, Blood 9.2 mg/dL (8.5-10.1); Creatinine, Blood 0.91 mg/dL (0.40-1.00); Globulin, Blood 3.7 g/dL (2.2-4.0); Potassium, Blood 4.1 mmol/L (3.5-5.5); Total Protein, Blood 6.8 g/dL (6.4-8.2)
[2022-12-02 12:45] VITALS: BP 173/71
== END 2022-12-02 12:59 | disposition home or self-care (01) ==
LOC: ER 08:15
PROVIDERS: Emergency Medicine
DX: R07.89 Other chest pain (principal); H61.23 Impacted cerumen, bilateral; R51.9 Headache, unspecified; Z88.6 Allergy status to analgesic agent; Z88.8 Allergy status to other drugs, medicaments and biological substances; Z88.5 Allergy status to narcotic agent; Z79.899 Other long term (current) drug therapy; I10 Essential (primary) hypertension; K21.9 Gastro-esophageal reflux disease without esophagitis
CPT/HCPCS: 69209; 71046; 80053; 83690; 84484; 85025; 93005; 93010; 99284-25

== ENCOUNTER 2023-05-08 19:24 | Emergency (ER) | payer MEDICARE ==
[~2023-05-08] VITALS: Ht 165.1 cm; Wt 90.7 kg
[2023-05-08 19:50] LABS: BASOPHILS ABSOLUTE AUTO 0.02 K/mm3 (0.00-0.23); BASOPHILS PERCENT AUTO 0 % (0-2); EOSINOPHILS ABSOLUTE AUTO 0.04 K/mm3 (0.00-0.68); EOSINOPHILS PERCENT AUTO 1 % (0-6); Hematocrit 39.7 % (33.0-51.0); Hemoglobin 13.1 g/dL (11.5-16.0); IMMATURE GRAN ABSOLUTE AUTO 0.02 K/mm3 (0.00-0.10); IMMATURE GRAN PERCENT AUTO 0 % (0-1); LYMPHOCYTES ABSOLUTE AUTO 0.27 K/mm3 (0.84-5.20); LYMPHOCYTES PERCENT AUTO 4 % (21-46); MONOCYTES ABSOLUTE AUTO 0.53 K/mm3 (0.16-1.47); MONOCYTES PERCENT AUTO 7 % (4-13); Mean Corpuscular HGB 31.7 pg (26.0-34.0); Mean Corpuscular Volume 96 fL (80-100); Mean Platelet Volume 9.2 fL (9.1-12.4); NEUTROPHILS PERCENT AUTO 88 % (41-73); Platelet Count 192 K/mm3 (150-400); RDW Coefficient Variation 13.4 % (11.7-14.2); RDW Standard Deviation 47.8 fL (35.1-46.3); Red Blood Cell Count 4.13 M/mm3 (3.80-5.20); White Blood Cell Count 7.38 K/mm3 (4.00-11.30)
[2023-05-08 20:05] LABS: Albumin, Blood 3.6 g/dL (3.4-5.0); Albumin/Globulin Ratio 0.8 (0.8-1.8); Bilirubin, Total 0.3 mg/dL (0.1-1.0); Bun/Creatinine Ratio 27.9 (12.0-20.0); Calcium, Blood 9.2 mg/dL (8.5-10.1); Creatinine, Blood 0.97 mg/dL (0.40-1.00); Globulin, Blood 4.3 g/dL (2.2-4.0); Potassium, Blood 4.5 mmol/L (3.5-5.5); Total Protein, Blood 7.9 g/dL (6.4-8.2)
[2023-05-08 20:53] LABS: Influenza A, PCR NEGATIVE (NEGATIVE); Influenza B, PCR NEGATIVE (NEGATIVE); Resp Syncytial Virus, PCR NEGATIVE (NEGATIVE)
[2023-05-08 20:54] LABS: SARS-Cov-2 (COVID-19) PCR, MMC POSITIVE (NEGATIVE)
[2023-05-09 02:30] VITALS: BP 136/63
[2023-05-09 03:11] LABS: Source, Urine Straight Cath
[2023-05-09 03:18] LABS: Bilirubin, Urine Neg (Neg); Blood, Urine 1+ (Neg); Glucose Qualitative, Urine Neg (Neg); Ketones, Urine 2+ (Neg); Leukocyte Esterase, Urine 1+ (Neg); Nitrite, Urine Neg (Neg); Protein, Urine Neg (Neg); Specific Gravity, Urine 1.015 (1.003-1.022); Urobilinogen, Urine NORM (Normal)
[2023-05-09 03:24] LABS: Appearance, Urine Clear (Clear); Color, Urine Yellow (P-Yellow)
[2023-05-09 03:25] LABS: Amorphous Light (0-Heavy); Bacteria Few /hpf; Red Blood Cells, Urine 0-2 /hpf (0-2); Squamous Epithelial Cells Few /hpf (Few); White Blood Cells, Urine 0-2 /hpf (0-5)
[2023-05-09 03:26] LABS: Mucus Light (0-Heavy)
== END 2023-05-09 04:42 | disposition home or self-care (01) ==
LOC: ER 19:24
PROVIDERS: Emergency Medicine
DX: U07.1 COVID-19 (principal); R10.30 Lower abdominal pain, unspecified; I10 Essential (primary) hypertension; I48.91 Unspecified atrial fibrillation; Z79.899 Other long term (current) drug therapy; Z79.01 Long term (current) use of anticoagulants
CPT/HCPCS: 0241U; 72170; 80053; 81001; 85025; 93005; 93010; 99285-25; J7030